=== PATIENT | male | born 1995 | race African-American/Black ===

== ENCOUNTER 2021-11-08 16:43 | Emergency (ER) | payer MEDICARE ==
[~2021-11-08] VITALS: Ht 170.2 cm; Wt 91.0 kg
[2021-11-08 16:44] VITALS: BP 128/86
== END 2021-11-08 21:00 | disposition left against medical advice (07) ==
LOC: EDSEX 16:43 → ER 16:43
DX: T40.0X1A Poisoning by opium, accidental (unintentional), initial encounter (principal); X58.XXXA Exposure to other specified factors, initial encounter
CPT/HCPCS: 93005; 99283